=== PATIENT | male | born 1960 | race Caucasian/White ===

== ENCOUNTER 2021-01-03 00:47 | Emergency (ER) | payer BC ==
[~2021-01-03] VITALS: Ht 188 cm; Wt 131.0 kg
[~2021-01-03 00:47] MED LIST: NAPROSYN500 MG PO
[2021-01-03 01:20] LABS: HEMATOCRIT 42.6 % (39.0-50.0); IMMATURE GRANULOCYTES 0.6 % (0.0-5.0); MEAN CORPUSCULAR HGB 32.8 pG CALC (26.0-32.0); MEAN CORPUSCULAR HGB CONC 35.2 g/dL CAL (32.0-36.0); NEUT# 3.33 thou/uL (1.82-7.42); RED BLOOD COUNT 4.58 mill/uL (4.70-6.10)
[2021-01-03 01:32] LABS: ALBUMIN 3.9 g/dL (3.2-5.0); ALKALINE PHOSPHATASE 51 u/l (38-126); AMYLASE 50 u/l (30-110); BILIRUBIN, TOTAL 0.7 mg/dL (0.0-1.4); BUN 15 mg/dL (9-20); BUN/CREATININE RATIO 18 (12-20 (CALC)); CARBON DIOXIDE 23 mmol/l (22-30); CHLORIDE 95 mmol/l (95-108); CREATININE 0.8 mg/dL (0.7-1.3); GFR > 60 ML/MIN (>=60 (CALC)); GFR FOR AFR.AMER. > 60 ML/MIN (>=60 (CALC)); LIPASE 157 u/l (23-300); POTASSIUM 3.8 mmol/l (3.5-5.1); TOTAL PROTEIN 6.8 g/dL (6.3-8.2)
[2021-01-03 01:38] LABS: ANION GAP 16 (6-22 (CALC)); SGOT/AST 65 u/l (17-59); SODIUM 130 mmol/l (137-146)
[2021-01-03 01:56] LABS: URINE BILIRUBIN - DIPSTICK NEGATIVE (NEGATIVE); URINE BLOOD DIPSTICK NEGATIVE (NEGATIVE); URINE COLOR YELLOW; URINE GLUCOSE - DIPSTICK NEGATIVE (NEGATIVE); URINE KETONE 15 mg/dL (NEGATIVE); URINE LEUK ESTERASE NEGATIVE (NEGATIVE); URINE PROTEIN - DIPSTICK NEGATIVE (NEG-TRACE); URINE SPECIFIC GRAVITY 1.025; URINE UROBILINOGEN - DIPSTICK 0.2 E.U./dL (0.2)
[2021-01-03 02:01] LABS: URINE NITRITE - DIPSTICK NEGATIVE (Negative)
[2021-01-03] MEDS ORDERED: LEVSIN/SL0.125 MG SL (04:13)
[2021-01-03 05:45] VITALS: BP 123/72
== END 2021-01-03 05:48 | disposition home or self-care (01) | DRG 391 ==
LOC: ED 00:47
PROVIDERS: Family Medicine
DX: R10.32 Left lower quadrant pain (principal); U07.1 COVID-19; I10 Essential (primary) hypertension
CPT/HCPCS: Q9967

== ENCOUNTER 2021-12-20 08:48 | Emergency (ER) | payer OTHER ==
[~2021-12-20] VITALS: Ht 188 cm; Wt 126.0 kg
[~2021-12-20 08:48] MED LIST changes: +LEVSIN/SL0.125 MG SL
[2021-12-20 08:55] VITALS: BP 146/72
[2021-12-20 09:00] VITALS: BP 155/76
[2021-12-20 09:17] VITALS: BP 155/76
== END 2021-12-20 09:22 | disposition home or self-care (01) ==
LOC: ED 08:48
DX: Z48.01 Encounter for change or removal of surgical wound dressing (principal); I10 Essential (primary) hypertension; Z90.49 Acquired absence of other specified parts of digestive tract

== ENCOUNTER 2021-12-21 10:08 | Emergency (ER) | payer OTHER | END 2021-12-21 10:23 | disposition home or self-care (01) | DRG 951 | LOC: ED 10:08 → LWOBS 10:22 → ED 10:22 → LWOBS 10:23 | DX: Z53.21 Procedure and treatment not carried out due to patient leaving prior to being seen by health care provider (principal) ==

== ENCOUNTER 2021-12-21 18:58 | Emergency (ER) | payer OTHER ==
[~2021-12-21] VITALS: Ht 188 cm; Wt 124.1 kg
[2021-12-21 19:13] VITALS: BP 110/60
[2021-12-21 20:26] VITALS: BP 110/60
== END 2021-12-21 20:30 | disposition home or self-care (01) ==
LOC: ED 18:58
DX: Z48.01 Encounter for change or removal of surgical wound dressing (principal); I10 Essential (primary) hypertension

== ENCOUNTER 2022-04-21 14:11 | Emergency (ER) | payer OTHER | END 2022-04-21 16:57 | disposition left against medical advice (07) | DRG 951 | LOC: ED 14:11 → LWOBS 16:48 | PROVIDERS: Family Medicine | DX: Z53.21 Procedure and treatment not carried out due to patient leaving prior to being seen by health care provider (principal) ==